=== PATIENT | female | born 1995 | race African-American/Black ===

== ENCOUNTER 2018-10-21 03:50 | Emergency (ER) | payer OTHER ==
[2018-10-21] MEDS ORDERED: MAG HYDROX/AL HYDROX/SIMETH 30 ML UDC PO STA (04:08)
[2018-10-21] MEDS ORDERED: FAMOTIDINE 20 MG TABLET PO STA (04:08)
[2018-10-21] MEDS ORDERED: SUCRALFATE 1 GM/10 ML UDC PO STA (04:08)
[2018-10-21] MEDS ORDERED: LIDOCAINE VISCOUS 2% 15 ML UDC MM STA (04:08)
--- NOTE | 2018-10-21 04:12 | ED Physician Documentation ---
History of Present Illness - Stated complaint Stated Complaint: CHEST PAIN - Chief complaint Chief Complaint: General - History obtained from History obtained from: Patient - History of Present Illness Timing: How many hours ago (2) Pain level max: 4 Pain level now: 3 - Additonal information Additional information: 23-year-old female with sharp central chest pain tonight. Awoke her from sleep. Had [place] food the last night. Worse when trying to drink michelle uche or swallow. Nothing has made it better. No abdominal pain. No nausea or vomiting. No difficulty breathing. No recent travel. No recent surgery. No recent illnesses. Review of Systems Constitutional: denies: Fever, Chills Nose: denies: Rhinorrhea / runny nose, Congestion Cardiac: denies: Palpitations Respiratory: denies: Dyspnea, Cough, Hemoptysis, Wheezing GI: denies: Nausea, Vomiting, Diarrhea : denies: Dysuria, Frequency, Hesitancy, Now EGA Skin: denies: Rash Musculoskeletal: denies: Neck pain, Back pain PD PAST MEDICAL HISTORY - Past Medical History Past Medical History: No - Past Surgical History Past Surgical History: No - Present Medications Home Medications: Ambulatory Orders Medication Instructions Recorded Confirmed Famotidine [Pepcid] 20 mg PO BID #60 tablet 10/21/18 - Allergies Allergies/Adverse Reactions: Allergies Allergy/AdvReac Type Severity Reaction Status Date / Time No Known Drug Allergies Allergy Verified 10/21/18 04:12 - Social History Does the pt smoke?: No Smoking Status: Never smoker Does the pt drink ETOH?: Yes ETOH Use: Wine, Liquor - Immunizations Immunizations are current?: Yes - POLST Patient has POLST: No PD ED PE NORMAL - Vitals Vital signs reviewed: Yes (initial temp is 36.6 not 39.6) - General General: Alert and oriented X 3, No acute distress, Well developed/nourished - HEENT HEENT: Moist mucous membranes - Neck Neck: Supple, no meningeal sign - Cardiac Cardiac: RRR, Strong equal pulses - Respiratory Respiratory: No respiratory distress, Clear bilaterally - Abdomen Abdomen: Soft, Non tender, Non distended - Back Back: No CVA TTP, No spinal TTP - Derm Derm: Warm and dry - Extremities Extremities: No edema, No calf tenderness / cord - Neuro Neuro: Alert and oriented X 3 - Psych Psych: Normal mood, Normal affect Results - Vitals Vitals: Vital Signs - 24 hr 10/21/18 10/21/18 04:01 05:05 Temperature 36.6 C Heart Rate 93 83 Respiratory 18 Rate Blood Pressure 114/85 H 111/81 H O2 Saturation 100 100 Oxygen O2 Source Room air - EKG (time done) 0411 Rate: Rate (enter#) (90) Rhythm: NSR [place]: Normal Intervals: Normal [place] QRS: Normal Ischemia: Normal ST segments PD MEDICAL DECISION MAKING - ED course Complexity details: reviewed results, re-evaluated patient, considered differential (No ST elevation [place], no aortic dissection, no PE, no tension pneumothorax, no aortic aneurysm), d/w patient ED course: Patient is well-appearing, nontoxic. Afebrile. Tolerating p.o. without difficulty. Symptoms resolved with GI cocktail. Will treat for gastroesophageal reflux and follow-up with her doctor. Normal EKG. No evidence of acute coronary syndrome. Patient counseled regarding signs and symptoms for which I believe and urgent re-evaluation would be necessary. Patient with good understanding of and agreement to plan and is comfortable going home at this time This document was made in part using voice recognition software. While efforts are made to proofread this document, sound alike and grammatical errors may occur. Departure - Departure Disposition: 01 Home, Self Care Clinical Impression: GERD (gastroesophageal reflux disease) Qualifiers: Esophagitis presence: with esophagitis Qualified Code(s): K21.0 - Gastro- esophageal reflux disease with esophagitis Condition: Good Instructions: ED GERD Follow-Up: your,doctor in 1 week [Other] Prescriptions: Famotidine [Pepcid] 20 mg PO BID #60 tablet Comments: Return if you worsen. Follow-up with your doctor for further care. This appears to be related to esophageal reflux tonight. Your EKG is normal. You have no signs of heart disease at this time. Discharge Date/Time: 10/21/18 05:11
[2018-10-21] MEDS ORDERED: PHENobarb/HYOSCY/ATROPINE/SCOP 5 ML UDC PO STA (04:42)
[2018-10-21 05:05] VITALS: BP 111/81
== END 2018-10-21 05:11 | disposition home or self-care (01) ==
LOC: ED 03:50
DX: K21.0 Gastro-esophageal reflux disease with esophagitis (principal)
CPT/HCPCS: 93005; 99283; A9270

== ENCOUNTER 2019-01-09 03:34 | Emergency (ER) | payer OTHER ==
[2019-01-09] MEDS ORDERED: MAG HYDROX/AL HYDROX/SIMETH 30 ML UDC PO STA (04:25)
[2019-01-09] MEDS ORDERED: ONDANSETRON ODT 4 MG TABLET TL STA (04:25)
[2019-01-09] MEDS ORDERED: DIPHENOX/ATROPINE 2.5/0.025 MG TABLET PO STA (04:25)
[2019-01-09] MEDS ORDERED: ONDANSETRON ODT 4 MG Prepack 2 TL PRN (04:25)
[2019-01-09] MEDS ORDERED: LIDOCAINE VISCOUS 2% 15 ML UDC MM STA (04:25)
--- NOTE | 2019-01-09 04:26 | ED Physician Documentation ---
PD HPI CHEST PAIN - Stated complaint Stated Complaint: CP/VOMITING - Chief complaint Chief Complaint: Cardiac - History obtained from History obtained from: Patient - History of Present Illness Timing - onset: How many hours ago (1-2), Today Timing - onset during: Sleep Timing - details: Abrupt onset, Still present (lessened but still hurting) Quality: Aching, Indigestion Location: Substernal, Epigastric Radiation: Back Associated symptoms: Nausea. No: Shortness of air, Vomiting, Feeling faint / dizzy, General Weakness, Palpitations Review of Systems Constitutional: denies: Fever, Chills, Myalgias Nose: denies: Rhinorrhea / runny nose, Congestion Throat: denies: Sore throat Cardiac: reports: Chest pain / pressure. denies: Palpitations, Pedal edema, Calf pain Respiratory: denies: Dyspnea, Cough GI: reports: Nausea, Vomiting (once in the past hour), Diarrhea (once after arrival to ER). denies: Abdominal Pain Skin: denies: Rash, Lesions PD PAST MEDICAL HISTORY - Past Medical History Past Medical History: No GI: GERD - Past Surgical History Past Surgical History: No - Present Medications Home Medications: Ambulatory Orders Medication Instructions Recorded Confirmed Famotidine [Pepcid] 20 mg PO BID #60 tablet 10/21/18 Lidocaine Viscous 2% [Xylocaine 5 ml PO Q4H PRN #100 ml 01/09/19 Viscous 2%] Ondansetron Odt [Zofran] 4 mg TL Q6H PRN #10 tablet 01/09/19 - Allergies Allergies/Adverse Reactions: Allergies Allergy/AdvReac Type Severity Reaction Status Date / Time No Known Drug Allergies Allergy Verified 10/21/18 04:12 - Social History Does the pt smoke?: No Smoking Status: Never smoker Does the pt drink ETOH?: Yes - Immunizations Immunizations are current?: Yes - POLST Patient has POLST: No PD ED PE NORMAL - Vitals Vital signs reviewed: Yes - General General: Alert and oriented X 3, No acute distress, Well developed/nourished - HEENT HEENT: Pharynx benign - Neck Neck: Supple, no meningeal sign, No adenopathy - Cardiac Cardiac: RRR, No murmur - Respiratory Respiratory: Clear bilaterally - Abdomen Abdomen: Normal bowel sounds, Soft, Non distended, No organomegaly, Other (mild tender epigastric area without guarding. ) - Derm Derm: Normal color, Warm and dry Results - Vitals Vitals: Vital Signs - 24 hr 01/09/19 01/09/19 03:42 04:39 Temperature 37.2 C Heart Rate 110 H 94 Respiratory 16 16 Rate Blood Pressure 146/84 H 117/83 H O2 Saturation 100 100 Oxygen O2 Source Room air PD MEDICAL DECISION MAKING - ED course Complexity details: considered differential (improved with GI cocktail. But also with now vomiting and diarrhea once each the past hour, so presume start of viral GE. not tender in GB area. ), d/w patient Departure - Departure Disposition: Home, Self Care Clinical Impression: Chest pain Qualifiers: Chest pain type: other chest pain Qualified Code(s): R07.89 - Other chest pain GERD (gastroesophageal reflux disease) Qualifiers: Esophagitis presence: with esophagitis Qualified Code(s): K21.0 - Gastro- esophageal reflux disease with esophagitis Condition: Stable Record reviewed to determine appropriate education?: Yes Instructions: ED Nausea Vomiting Prescriptions: Lidocaine Viscous 2% [Xylocaine Viscous 2%] 5 ml PO Q4H PRN #100 ml PRN Reason: Pain Ondansetron Odt [Zofran] 4 mg TL Q6H PRN #10 tablet PRN Reason: Nausea / Vomiting Comments: This does not seem to be heart or lung related. Presume some reflux and irritation of the esophagus. This may along with your episode of vomiting and diarrhea be the beginning of a viral "stomach flu". If so use some antacids and can use lidocaine with it. Ondansetron if needed for nausea of vomiting. Imodium if needed for diarrhea. Recheck if not better in a day or so. Forms: Activity restrictions Discharge Date/Time: 01/09/19 04:39
[2019-01-09 04:39] VITALS: BP 117/83
== END 2019-01-09 04:39 | disposition home or self-care (01) ==
LOC: ED 03:34
DX: K21.0 Gastro-esophageal reflux disease with esophagitis (principal)
CPT/HCPCS: 93005; 99283; A9270; Q0162

== ENCOUNTER 2019-04-02 20:53 | Emergency (ER) | payer OTHER ==
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
[2019-04-02] MEDS ORDERED: LIDOCAINE 2% 10 ML MDV SUBQ STA (21:32)
[2019-04-02 22:17] VITALS: BP 127/82
== END 2019-04-02 22:19 | disposition home or self-care (01) ==
LOC: ED 20:53
DX: S61.214A Laceration without foreign body of right ring finger without damage to nail, initial encounter (principal); W31.89XA Contact with other specified machinery, initial encounter; Y93.89 Activity, other specified; Y99.0 Civilian activity done for income or pay
CPT/HCPCS: 99282

== ENCOUNTER 2019-07-06 20:15 | Emergency (ER) | payer OTHER ==
--- NOTE | 2019-07-06 21:01 | ED Physician Documentation ---
History of Present Illness - Stated complaint Stated Complaint: THROAT PAIN, SOAR AND SWOLLEN - Chief complaint Chief Complaint: Heent - Additonal information Additional information: This is an otherwise healthy 24-year-old female who presents with sore throat, nasal congestion, chills for the last 3 days. She has not had a measured fever, but she has felt subjective the warm. She has also developed some slight left- sided ear discomfort over the last 24 hours. No nausea or vomiting, no chest pain or shortness of breath. She has a cough which productive of a small amount of whitish mucus. No abdominal pain or vomiting. 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 HEENT: None Psych: None Musculoskeletal: None Derm: None - Past Surgical History Past Surgical History: No - Allergies Allergies/Adverse Reactions: Allergies Allergy/AdvReac Type Severity Reaction Status Date / Time No Known Drug Allergies Allergy Verified 04/02/19 21:05 - Social History Does the pt smoke?: No Smoking Status: Never smoker Does the pt drink ETOH?: Yes Does the pt have substance abuse?: No - Immunizations Immunizations are current?: Yes - POLST Patient has POLST: No PD ED PE NORMAL - Vitals Vital signs reviewed: Yes - General General: Alert and oriented X 3, No acute distress - HEENT HEENT: Other (Posterior pharynx is erythematous, there is no exudate. Uvula is midline. Neck is soft with some mild anterior lymphadenopathy. External canals and tympanic membranes are flat and clear bilaterally) - Neck Neck: Supple, no meningeal sign - Cardiac Cardiac: RRR, No murmur - Respiratory Respiratory: Clear bilaterally - Abdomen Abdomen: Soft, Non distended - Derm Derm: Warm and dry - Extremities Extremities: No deformity - Neuro Neuro: Alert and oriented X 3 - Psych Psych: Normal mood, Normal affect Results - Vitals Vitals: Vital Signs - 24 hr 07/06/19 20:19 Temperature 36.8 C Heart Rate 88 Respiratory 18 Rate Blood Pressure 120/81 H O2 Saturation 100 Oxygen O2 Source Room air - Labs Labs: Laboratory Tests 07/06/19 10:21 Group A Strep Rapid Negative PD MEDICAL DECISION MAKING - ED course Complexity details: considered differential (Viral syndrome, viral pharyngitis, strep throat) ED course: Patient presents with cough, sore throat, rhinorrhea, she is nontoxic on exam with normal vital signs. 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 Given her cough, age, and lack of exudate, as well as lack of fever, she is low risk for strep throat. Rapid strep is negative. We gave her a dose of steroids for her sore throat, and discussed supportive care for what appears to be a viral pharyngitis. Also discussed return precautions and patient was discharged home in the care of her partner Departure - Departure Disposition: Home, Self Care Clinical Impression: Acute viral pharyngitis Condition: Good Instructions: ED Pharyngitis Viral Comments: You were seen today for sore throat and some ear discomfort. I do not see signs of bacterial infection at this time. I think you likely have a virus is causing your symptoms. You may take 650 mg of Tylenol every 6 hours as needed for pain and fever, and 600 mg of ibuprofen every 6 hours as needed for pain and fever. The steroid today should help decrease the information of your throat. Please drink plenty of fluids and get adequate rest. Return to the emergency department if you have new or worsening symptoms.
[2019-07-06] MEDS ORDERED: DEXAMETHASONE 10 MG/ML VIAL PO STA (21:10)
[2019-07-06] MEDS ORDERED: CHERRY SYRUP 10 ML UDC PO ONE (21:10)
[2019-07-06 21:22] VITALS: BP 116/82
== END 2019-07-06 21:27 | disposition home or self-care (01) ==
LOC: ED 20:15
DX: J02.8 Acute pharyngitis due to other specified organisms (principal); B97.89 Other viral agents as the cause of diseases classified elsewhere; H92.02 Otalgia, left ear
CPT/HCPCS: 87070; 87430; 99283; 99284; A9270

== ENCOUNTER 2021-06-23 16:16 | Emergency (ER) | payer OTHER ==
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
[2021-06-23] MEDS ORDERED: BUTALB/ACETAM/CAFF 50/325/40MG TABLET PO STA (17:22)
[2021-06-23 17:34] VITALS: BP 122/69
== END 2021-06-23 17:33 | disposition home or self-care (01) ==
LOC: ED 16:16
DX: S16.1XXA Strain of muscle, fascia and tendon at neck level, initial encounter (principal); V89.0XXA Person injured in unspecified motor-vehicle accident, nontraffic, initial encounter
CPT/HCPCS: 70450; 99282; 99284; A9270

== ENCOUNTER 2021-09-27 12:31 | Emergency (ER) | payer OTHER ==
--- NOTE | 2021-09-27 13:45 | XRAY Report ---
PROCEDURE: Chest 1 View X-Ray INDICATIONS: Shortness of breath TECHNIQUE: One view of the chest was acquired. COMPARISON: None FINDINGS: Surgical changes and devices: None. Lungs and pleura: No pleural effusions or pneumothorax. Lungs are clear. Mediastinum: Mediastinal contours appear normal. Heart size is normal. Bones and chest wall: No suspicious bony lesions. Overlying soft tissues appear unremarkable. IMPRESSION: Normal chest radiograph. Reviewed by: Dwaine Corral MD on 09/27/2021 12:44 PM [facility] Approved by: Dwaine Corral MD on 09/27/2021 12:44 PM [facility] Station ID: [id number]
[2021-09-27 15:17] VITALS: BP 116/71
--- NOTE | 2021-09-27 15:29 | ED Physician Documentation ---
PD HPI HEENT - Stated complaint Stated Complaint: WORSENING COLD SYMPTOMS - Chief complaint Chief Complaint: Resp - History obtained from History obtained from: Patient - Additional information Additional information: 26-year-old woman who has been sick for the better part of 10 days with cough, body aches, loss of taste and smell, some shortness of breath. She tested negative for COVID but is still persistently symptomatic. Review of Systems Constitutional: reports: Chills, Myalgias. 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 : None HEENT: None Psych: Depression, Anxiety Musculoskeletal: None Derm: None - Past Surgical History Past Surgical History: No - Present Medications Home Medications: Ambulatory Orders Medication Instructions Recorded Confirmed Albuterol Sulfate [Proair Hfa 1 - 2 puffs IH Q4HR PRN 09/27/21 09/27/21 Inhaler] Ondansetron Odt [Zofran] 4 mg TL Q6H PRN #10 tablet 09/27/21 Sertraline [Zoloft] 25 mg PO DAILY 09/27/21 09/27/21 predniSONE [Deltasone] 20 mg PO [id number] #21 tab 09/27/21 - Allergies Allergies/Adverse Reactions: Allergies Allergy/AdvReac Type Severity Reaction Status Date / Time No Known Drug Allergies Allergy Verified 09/27/21 12:58 - Social History Does the pt smoke?: No Smoking Status: Never smoker Does the pt drink ETOH?: Yes Does the pt have substance abuse?: No - Immunizations Immunizations are current?: Yes - POLST Patient has POLST: No PD ED PE NORMAL - Vitals Vital signs reviewed: Yes - General General: Alert and oriented X 3, No acute distress - HEENT HEENT: Pharynx benign - Neck Neck: Supple, no meningeal sign, No bony TTP - Cardiac Cardiac: RRR, No murmur - Respiratory Respiratory: No respiratory distress, Other (Mild expiratory wheezes, no other focal findings. Nonlabored.) - Derm Derm: Normal color, Warm and dry, No rash - Extremities Extremities: No edema, No calf tenderness / cord - Neuro Neuro: Alert and oriented X 3, Normal speech Results - Vitals Vitals: Vital Signs - 24 hr 09/27/21 09/27/21 12:53 15:16 Temperature 36.3 C L 36.1 C L Heart Rate 79 75 Respiratory 16 18 Rate Blood Pressure 115/67 116/71 O2 Saturation 100 100 Oxygen O2 Source Room air PD MEDICAL DECISION MAKING - ED course ED course: 26-year-old woman with persistent symptoms from a nonspecific viral syndrome. She has a history of reactive airways disease and is wheezing slightly today. 2 view chest x-ray interpreted contemporaneously by me was normal. We will recheck for COVID but treat her with steroids and she is having nausea so some Zofran as well. Departure - Departure Disposition: Home, Self Care Clinical Impression: Upper respiratory tract infection Condition: Good Record reviewed to determine appropriate education?: Yes Instructions: ED Viral Syndrome Prescriptions: predniSONE [Deltasone] 20 mg PO [id number] #21 tab Ondansetron Odt [Zofran] 4 mg TL Q6H PRN #10 tablet PRN Reason: Nausea / Vomiting Comments: Prescriptions were sent electronically to [facility] in [place]. Call your doctor to arrange a follow-up appointment, make the next available appointment. In the interim, return anytime if worse or if new symptoms develop. You have a Covid test pending. You need to self quarantine until the result is done and negative. Do not leave your house. Do not get near anybody. The results should be done in 48 to 72 hours. We will call with a positive result, the fastest way to get a negative result for confirmation though is to go to the hospital website at [email or web address], click on the my [facility] tab and sign up for the patient portal. If any friends or family get sick and would like to have a Covid test done, but do not have signs or symptoms that would necessitate being hospitalized, there are multiple local options for Covid testing. [facility] keeps an updated list of testing and vaccination options at: [email or web address]. Discharge Date/Time: 09/27/21 15:36
== END 2021-09-27 15:36 | disposition home or self-care (01) ==
LOC: ED 12:31
DX: J06.9 Acute upper respiratory infection, unspecified (principal); Z20.822 Contact with and (suspected) exposure to COVID-19
CPT/HCPCS: 99283; 99284

== ENCOUNTER 2021-10-08 08:00 | Outpatient (CLI) | payer OTHER ==
[2021-10-08 21:22] LABS: INFECTIOUS MONONUCLEOSIS NEGATIVE (Negative)
== END 2021-10-08 23:59 | disposition home or self-care (01) ==
LOC: LAB 08:00
PROVIDERS: ATTEND Physician Assistant
DX: B34.9 Viral infection, unspecified (principal)
CPT/HCPCS: 86308

== ENCOUNTER 2021-11-30 07:30 | Outpatient (CLI) | payer OTHER | END 2021-11-30 07:31 | disposition home or self-care (01) | LOC: DI 07:30 | DX: R06.00 Dyspnea, unspecified (principal); I51.7 Cardiomegaly | CPT/HCPCS: 93306 ==

== ENCOUNTER 2022-02-02 15:27 | Emergency (ER) | payer OTHER ==
[2022-02-02 16:26] LABS: BASOPHILS # (AUTO) 0.1 10^3/uL (0.0-0.1); BASOPHILS % (AUTO) 0.7 %; EOSINOPHILS # (AUTO) 0.1 10^3/uL (0.0-0.7); EOSINOPHILS % (AUTO) 1.4 %; HCT - HEMATOCRIT 39.8 % (37.0-47.0); HGB - HEMOGLOBIN 12.5 g/dL (12.0-16.0); LYMPHOCYTES % (AUTO) 25.7 %; MEAN CORPUSCULAR HEMOGLOBIN 27.5 pg (27.0-31.0); MEAN CORPUSCULAR HGB CONC 31.4 g/dL (32.0-36.0); MEAN CORPUSCULAR VOLUME 87.7 fL (81.0-99.0); MEAN PLATELET VOLUME 9.3 fL (7.9-10.8); MONOCYTES # (AUTO) 0.6 10^3/uL (0.0-1.0); NEUTROPHILS # (AUTO) 4.9 10^3/uL (1.5-6.6); NEUTROPHILS % (AUTO) 63.9 %; PLT - PLATELET COUNT 279 10^3/uL (130-450); RED BLOOD COUNT 4.54 10^6/uL (4.20-5.40); WHITE BLOOD COUNT 7.6 x10^3/uL (4.8-10.8)
[2022-02-02 16:39] LABS: ALBUMIN 4.3 g/dL (3.2-5.5); ALBUMIN/GLOBULIN RATIO 1.3 (1.0-2.2); BILIRUBIN,TOTAL 0.5 mg/dL (0.2-1.0); CALCIUM 9.4 mg/dL (8.5-10.3); CREATININE 0.7 mg/dL (0.4-1.0); POTASSIUM 3.4 mmol/L (3.5-5.0); TOTAL PROTEIN 7.7 g/dL (6.7-8.2)
--- NOTE | 2022-02-02 16:56 | XRAY Report ---
PROCEDURE: Chest 1 View X-Ray INDICATIONS: Chest Pain TECHNIQUE: One view of the chest was acquired. COMPARISON: Chest x-ray 09/27/2021 FINDINGS: Surgical changes and devices: None. Lungs and pleura: No pleural effusions or pneumothorax. Lungs are clear. Mediastinum: Mediastinal contours appear normal. Heart size is normal. Bones and chest wall: No suspicious bony lesions. Overlying soft tissues appear unremarkable. IMPRESSION: No acute pulmonary process. Reviewed by: Mary Carmen Browne MD on 02/02/2022 4:55 PM PDT Approved by: Mary Carmen Browne MD on 02/02/2022 4:55 PM PDT Station ID: [id number]
[2022-02-02 18:10] VITALS: BP 136/98
[2022-02-02] MEDS ORDERED: LORazepam 1 MG TABLET PO STA (18:11)
--- NOTE | 2022-02-02 18:13 | ED Physician Documentation ---
PD HPI DYSPNEA - Stated complaint Stated Complaint: CHEST PX,HEADACHE,NAUSEA - Chief complaint Chief Complaint: Cardiac - History obtained from History obtained from: Patient - Additional information Additional information: 26-year-old woman who was previously healthy previous to getting a second COVID- vaccine March of last year. Since then she has had been having troubles with chest pain and trouble breathing. She has had a fairly thorough work-up per her history including but not limited to echocardiography, pulmonology consultation, PFTs, chest x-ray without pertinent positive findings. Today she was walking at 2 PM and developed chest pain and trouble breathing. Took her albuterol inhaler which was modestly if at all helpful. She still has it but it is better. There is no associated pedal edema, calf pain, recent travel. No cough. She has a Mirena in place with no other hormonal supplementation. Review of Systems Constitutional: denies: Fever, Chills, Fatigue Cardiac: reports: Chest pain / pressure. denies: Palpitations Respiratory: reports: Dyspnea. 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 : None HEENT: None Psych: Depression, Anxiety Musculoskeletal: None Derm: None - Past Surgical History Past Surgical History: No - Present Medications Home Medications: Ambulatory Orders Medication Instructions Recorded Confirmed Albuterol Sulfate [Proair Hfa 1 - 2 puffs IH Q4HR PRN 09/27/21 02/02/22 Inhaler] - Allergies Allergies/Adverse Reactions: Allergies Allergy/AdvReac Type Severity Reaction Status Date / Time No Known Drug Allergies Allergy Verified 02/02/22 15:33 - Social History Does the pt smoke?: No Smoking Status: Never smoker Does the pt drink ETOH?: Yes Does the pt have substance abuse?: No - Immunizations Immunizations are current?: Yes - POLST Patient has POLST: No PD ED PE NORMAL - Vitals Vital signs reviewed: Yes - General General: Alert and oriented X 3, No acute distress - Neck Neck: Supple, no meningeal sign, No bony TTP - Cardiac Cardiac: RRR, No murmur - Respiratory Respiratory: No respiratory distress, Clear bilaterally - Abdomen Abdomen: Normal bowel sounds, Soft, Non tender - Derm Derm: Normal color, Warm and dry - Extremities Extremities: No edema, No calf tenderness / cord - Neuro Neuro: Alert and oriented X 3, Normal speech Results - Vitals Vitals: Vital Signs - 24 hr 02/02/22 02/02/22 15:30 18:08 Temperature 36.3 C L 36.4 C L Heart Rate 88 85 Respiratory 14 15 Rate Blood Pressure 128/85 H 136/98 H O2 Saturation 100 100 Oxygen O2 Source Room air - EKG (time done) 1534 Rate: Rate (enter#) (85) Rhythm: NSR [place]: Normal Intervals: Normal SD QRS: Normal Ischemia: Normal ST segments - Labs Labs: Laboratory Tests 02/02/22 02/02/22 02/02/22 16:20 16:21 16:21 WBC 7.6 RBC 4.54 Hgb 12.5 Hct 39.8 MCV 87.7 MCH 27.5 MCHC 31.4 L RDW 13.0 Plt Count 279 MPV 9.3 Neut # (Auto) 4.9 Lymph # (Auto) 2.0 [place] # (Auto) 0.6 Eos # (Auto) 0.1 Baso # (Auto) 0.1 Absolute Nucleated RBC 0.00 Nucleated RBC % 0.0 Sodium 135 Potassium 3.4 L Chloride 97 L Carbon Dioxide 26 Anion Gap 12.0 BUN 12 Creatinine 0.7 Estimated GFR (MDRD) 123 Glucose 100 Calcium 9.4 Total Bilirubin 0.5 AST 21 ALT 13 Alkaline Phosphatase 56 Troponin I High Sens C-Reactive Protein < 1.0 Total Protein 7.7 Albumin 4.3 Globulin 3.4 Albumin/Globulin Ratio 1.3 Lipase 31 02/02/22 16:21 WBC RBC Hgb Hct MCV MCH MCHC RDW Plt Count MPV Neut # (Auto) Lymph # (Auto) [place] # (Auto) Eos # (Auto) Baso # (Auto) Absolute Nucleated RBC Nucleated RBC % Sodium Potassium Chloride Carbon Dioxide Anion Gap BUN Creatinine Estimated GFR (MDRD) Glucose Calcium Total Bilirubin AST ALT Alkaline Phosphatase Troponin I High Sens < 2.3 L C-Reactive Protein Total Protein Albumin Globulin Albumin/Globulin Ratio Lipase - Rads (name of study) Single view chest x-ray is unremarkable Radiology: EMP read contemporaneously PD MEDICAL DECISION MAKING - ED course ED course: Heart score 0, PERC negative. Departure - Departure Disposition: 01 Home, Self Care Clinical Impression: Atypical chest pain Condition: Good Record reviewed to determine appropriate education?: Yes Instructions: ED Chest Pain NonCardiac Comments: As discussed, your exam, EKG, and labs look normal including a cardiac labs. Follow-up with your primary care physician. Let them know that we did give you a single dose of lorazepam here to see if it would help wondering if your pain might be related to anxiety. Other than that continue the current plan of care as prescribed by them with further consultations. Return if worsening. Do not drive today.
== END 2022-02-02 18:23 | disposition home or self-care (01) ==
LOC: ED 15:27
DX: R07.89 Other chest pain (principal)
CPT/HCPCS: 36415; 71045; 80053; 83690; 84484; 85025; 86140; 93005; 99284; J8499

== ENCOUNTER 2022-03-25 21:58 | Emergency (ER) | payer OTHER ==
[2022-03-26] MEDS ORDERED: KETOROLAC 60 MG/2 ML VIAL IM STA (00:15)
--- NOTE | 2022-03-26 00:22 | ED Physician Documentation ---
History of Present Illness - Stated complaint Stated Complaint: ALLERGIC REACTION TO MEDICATION - Chief complaint Chief Complaint: General - History obtained from History obtained from: Patient - Additonal information Additional information: Patient is a 26-year-old female presenting for evaluation of headache, trouble sleeping, hallucinations earlier.Patient is concerned that it is a reaction to propanolol which she started today. Patient reports having intermittent shortness of breath since 2019 after receiving a COVID-vaccine. She has been evaluated by a strategic intelligence officer who cleared her from a pulmonary standpoint. She recently saw neurologist who thought her symptoms were related to vagus nerve overstimulation and recommended propanolol.She took her first dose today. Earlier this afternoon around 3 or 4:00 she was trying to sleep and was having trouble doing so. She reportedFeeling like she was seeing people that were not there. She said it lasted for about 10 minutes and has not reoccurred. She has had a headache since taking the propanolol. She describes it as a throbbing and pressure and located in the front of her head. She has not tried anything for this. She reports associated nausea. She denies trauma or injury, visual disturbances, chest pain, current trouble breathing, vomiting or diarrhea.She denies concerns for . Review of Systems Constitutional: denies: Fever Nose: denies: Congestion Throat: denies: Sore throat Cardiac: denies: Chest pain / pressure Respiratory: denies: Dyspnea GI: denies: Abdominal Pain, Vomiting : denies: Dysuria Skin: denies: Rash Musculoskeletal: denies: Neck pain Neurologic: reports: Headache. 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 : None HEENT: None Psych: Depression, Anxiety Musculoskeletal: None Derm: None - Past Surgical History Past Surgical History: No - Present Medications Home Medications: Ambulatory Orders Medication Instructions Recorded Confirmed Albuterol Sulfate [Proair Hfa 1 - 2 puffs IH Q4HR PRN 09/27/21 03/25/22 Inhaler] Cetirizine [ZyrTEC] 10 mg PO ONCE 03/25/22 03/25/22 Propranolol HCl 20 mg PO DAILY 03/25/22 03/25/22 Venlafaxine HCl [Effexor Xr] 150 mg PO DAILY 03/25/22 03/25/22 - Allergies Allergies/Adverse Reactions: Allergies Allergy/AdvReac Type Severity Reaction Status Date / Time No Known Drug Allergies Allergy Verified 03/25/22 22:04 - Social History Does the pt smoke?: No Smoking Status: Never smoker Does the pt drink ETOH?: Yes Does the pt have substance abuse?: No - Immunizations Immunizations are current?: Yes - POLST Patient has POLST: No PD ED PE NORMAL - General General: Alert and oriented X 3, No acute distress, Well developed/nourished - HEENT HEENT: Atraumatic, PERRL, EOMI, Ears normal, Moist mucous membranes, Pharynx benign - Neck Neck: Supple, no meningeal sign, No bony TTP - Cardiac Cardiac: RRR, No murmur, Strong equal pulses - Respiratory Respiratory: No respiratory distress, Clear bilaterally - Abdomen Abdomen: Normal bowel sounds, Soft, Non tender, Non distended - Derm Derm: No rash - Extremities Extremities: No edema - Neuro Neuro: Alert and oriented X 3, jacket preparer 2-12 intact, No motor deficit, Normal speech Eye Opening: Spontaneous Motor: Obeys Commands Verbal: Oriented GCS Score: 15 - Psych Psych: Normal mood Results - Vitals Vitals: Vital Signs - 24 hr 03/25/22 03/26/22 22:00 00:32 Temperature 36.8 C Heart Rate 76 68 Respiratory 18 18 Rate Blood Pressure 138/91 H 120/90 H O2 Saturation 99 98 Oxygen O2 Source Room air PD MEDICAL DECISION MAKING - ED course ED course: Patient is a 26-year-old female presenting for evaluation of headache. Concerned for possible side effect to propanolol. Patient also reported hallucinations earlier that lasted approximately 10 minutes. On exam she is quite well-appearing. Normal neuro exam. Does not appear distressed. No light sensitivity or meningismus. Doubt need for emergent brain imaging based on her exam. No respiratory complaints. Vital signs are stable. Given medications for headache and advised to hold propanolol until further discussion with her neurologist. Patient is comfortable with this plan and aware of return precautions. Departure - Departure Disposition: 01 Home, Self Care Clinical Impression: Medication side effects Headache Qualifiers: Headache type: tension-type Headache chronicity pattern: acute headache Intractability: not intractable Qualified Code(s): G44.209 - Tension-type headache, unspecified, not intractable Condition: Stable Instructions: ED Headache Tension Comments: You were evaluated for a possible allergic reaction to propanolol. It is unclear whether your symptoms are Caused by the new medication but it is possible. Please stop taking the medication and call your neurologist on Monday to discuss your symptoms as well as possible alternatives to this medication. You can continue to use acetaminophen or ibuprofen for headaches. You can try melatonin for difficulty sleeping at night. If you have any worsening symptoms please return to the emergency department. Discharge Date/Time: 03/26/22 00:32
[2022-03-26 00:33] VITALS: BP 120/90
== END 2022-03-26 00:32 | disposition home or self-care (01) ==
LOC: ED 21:58
DX: G44.209 Tension-type headache, unspecified, not intractable (principal)
CPT/HCPCS: 96372; 99283; 99284